=== PATIENT | male | born 1965 | race Caucasian/White ===

== ENCOUNTER → 2020-09-04 | Outpatient (CLI) | payer OTHER ==
--- NOTE | 2020-09-05 09:07 | CT ---
EXAMINATION TYPE: CT iac wo con DATE OF EXAM: 09/04/2020 COMPARISON: None HISTORY: Conductive hearing loss. Patient had a [place] hearing implement that fell out. CT DLP: 142.7 mGycm Automated exposure control for dose reduction was used. Contrast: None Technique: Axial images 1 mm thick sections through the petrous ridges. Reconstructed images in the c oronal and sagittal plane were reviewed. FINDINGS: Retention cyst is within the left maxillary sinus. Mucosal thickening is within the left maxillary si nus. Some mild mucosal thickening is within the anterior ethmoid air cells and within the frontal sin uses. Remaining paranasal sinuses and mastoid air cells are clear. Cerebellopontine angles are clear. No expansion or erosion of the internal auditory canals is evident . There is left septal deviation. Ostiomeatal units are patent. Orbits appear symmetrical and unremar kable. Metallic foreign body is not identified on the indirect plane imaging. However, this may be present o n the insurance agency manager views posteriorly on the left. Standard CT brain may be able to better locate this object . IMPRESSION: 1. RADIOPAQUE FOREIGN BODY IS NOT IDENTIFIED. CONSIDER CT HEAD. 2. MUCOSAL THICKENING WITHIN PARANASAL SINUSES DISCUSSED ABOVE. 3. NO SUSPICIOUS ACUTE ABNORMALITY.
== END | disposition home or self-care (01) ==
LOC: RADCTMAIN 16:48
PROVIDERS: ATTEND Otolaryngology
DX: H90.2 Conductive hearing loss, unspecified (principal)
CPT/HCPCS: 70480

== ENCOUNTER → 2020-10-13 | Outpatient (CLI) | payer OTHER ==
--- NOTE | 2020-10-14 06:13 | CT ---
EXAMINATION TYPE: CT brain wo con DATE OF EXAM: 10/13/2020 HISTORY: Bilateral sensorineural hearing loss, history of implant. Looking for left over foreign body . Patient poor historian. CT DLP: 1064.3 mGycm. Automated Exposure Control for Dose Reduction was Utilized. TECHNIQUE: CT scan of the head is performed without contrast. COMPARISON: CT IAC September 04, 2020. FINDINGS: There is no acute intracranial hemorrhage or midline shift identified. There is mild diff use ventricular and sulcal prominence consistent with diffuse age-related cerebral atrophy. There is mild low-attenuation in the periventricular white matter consistent with chronic small vessel ischem ic change. Small mucous retention cyst and/or polyp in the inferior left maxillary sinus with minima l mucosal thickening is redemonstrated. Mild mucosal thickening involving the inferior bilateral fron isabela and anterior ethmoid sinuses redemonstrated. Globes are intact.. No suspicious opacification of mastoid air cells bilaterally. No suspicious CT dense foreign body at this level. No significant lew nge from prior. IMPRESSION: As above.
== END ==
LOC: RADCTMAIN 16:32
PROVIDERS: ATTEND Otolaryngology
DX: H90.3 Sensorineural hearing loss, bilateral (principal)
CPT/HCPCS: 70450

== ENCOUNTER → 2020-11-26 | Outpatient (CLI) | payer OTHER | END | disposition home or self-care (01) | CPT/HCPCS: 70553 ==

== ENCOUNTER → 2021-05-05 | Outpatient (CLI) | payer OTHER ==
[~2021-05-05] MED LIST: BAMLANIVIMAB (EUA) 700 MG, ETESEVIMAB (EUA) 1,400 MG in SODIUM CHLORIDE 0.9% 50 ML IVPB ONE; SODIUM CHLORIDE 0.9% 50 ML IVPB ONE; SODIUM CHLORIDE 0.9% 500 ML 500 ML in EMPTY BAG 1 BAG IV PRN
[2021-05-05 10:49] VITALS: PULSE 70; RESP 16
[2021-05-05 11:20] VITALS: BP 144/93
== END | disposition home or self-care (01) ==
LOC: PROCWHC3 09:59
PROVIDERS: ATTEND Physician Assistant
DX: U07.1 COVID-19 (principal)
CPT/HCPCS: 96360; J3490; M0245

== ENCOUNTER 2021-05-25 15:20 | Emergency (ER) | payer OTHER ==
--- NOTE | 2021-05-25 13:53 | CT ---
EXAMINATION TYPE: CT brain wo con DATE OF EXAM: 05/25/2021 COMPARISON: 10/13/2020 HISTORY: 56-year-old male head injury with LOC, pain. S06.0X9A concussion with LOC TECHNIQUE: Examination was done in axial plane without intravenous contrast. Coronal and sagittal r econstructions performed. CT DLP: 1162.8 mGycm Automated exposure control for dose reduction was used. FINDINGS: Extensive streak and beam hardening artifact along the left parietal convexity secondary to the patie nt's scalp implant. Allowing for the extensive artifacts and along the visualized portions, there is no evidence of acut e intracranial hemorrhage, acute ischemic changes, mass, mass-effect, or extra-axial fluid collection . There is no effacement of cerebral sulci or basal subarachnoid cisterns. There is no hydrocephalu s. There is no midline shift. Cat-white matter distinction is preserved. Paranasal sinuses show mild mucosal thickening floor of the left maxillary sinus along with a 1.4 cm polyp or mucous retention cyst. There is partial resection changes extending left mastoid process. Th ere is partial opacification here and leads extending into the cochlea. IMPRESSION: 1. Interval placement of left-sided cochlear implant with partial resection into the left mastoid pro cess and stimulator lead extending to the left cochlea. 2. There is some partial opacification of the left-sided mastoid air cells now. Correlate for any shane n to exclude mastoiditis. 3. Allowing for extensive artifacts secondary to the generator device along the left parietal region , no definite acute intracranial abnormality is seen.
[2021-05-25 14:17] LABS: Basophils # (A) 0.1 k/uL (0-0.2); Basophils % (A) 1 %; Eosinophils # (A) 0.1 k/uL (0-0.7); Eosinophils % (A) 2 %; HCT 47.8 % (39.0-53.0); HGB 16.2 gm/dL (13.0-17.5); Lymphocytes # (A) 1.3 k/uL (1.0-4.8); Lymphocytes % (A) 16 %; MCH 32.2 pg (25.0-35.0); MCHC 33.9 g/dL (31.0-37.0); MCV 94.8 fL (80.0-100.0); Monocytes # (A) 0.8 k/uL (0-1.0); Monocytes % (A) 10 %; Neutrophils # (A) 5.7 k/uL (1.3-7.7); Neutrophils % (A) 70 %; Platelet Count 264 k/uL (150-450); RBC 5.05 m/uL (4.30-5.90); RDW 13.1 % (11.5-15.5); WBC 8.2 k/uL (3.8-10.6)
[2021-05-25 14:28] LABS: ALT 147 U/L (4-49); AST 58 U/L (17-59); African American GFR (CKD) >90 (>60 ml/min/1.73 sqM); Albumin 4.2 g/dL (3.5-5.0); Alkaline Phosphatase 86 U/L (38-126); Anion Gap 9 mmol/L; Blood Urea Nitrogen 26 mg/dL (9-20); Calcium 9.3 mg/dL (8.4-10.2); Carbon Dioxide 23 mmol/L (22-30); Chloride 107 mmol/L (98-107); Glucose 112 mg/dL (74-99); Non-African American GFR(CKD) >90 (>60 ml/min/1.73 sqM); Potassium 4.3 mmol/L (3.5-5.1); Sodium 139 mmol/L (137-145); Total Bilirubin 1.1 mg/dL (0.2-1.3); Total Protein 7.4 g/dL (6.3-8.2)
[2021-05-25 14:47] LABS: Troponin I <0.012 ng/mL (0.000-0.034)
--- NOTE | 2021-05-25 15:57 | CT ---
EXAMINATION TYPE: CT angio chest DATE OF EXAM: 05/25/2021 COMPARISON: None HISTORY: 56-year-old male shortness of breath, R06.00 dyspnea history of colon. Patient with difficul ty breathing instructions/poor hearing. TECHNIQUE: Contiguous axial scanning of the chest performed with IV Contrast, patient injected with 1 00 mL of Isovue 370. Coronal/sagittal MIP reconstructions performed. CT DLP: 624 mGycm Automated exposure control for dose reduction was used. FINDINGS: Heart normal size without pericardial effusion. There is mild hypertrophy of the left ventricular wal l. No flattening of the interventricular septum or reflux of contrast into the hepatic veins. Borderline ectasia aortic root at 3.5 cm. Conventional orifice of branching anatomy. Borderline ectas ia upper descending thoracic aorta 3.0 cm. Scattered nonenlarged and borderline to mildly enlarged mediastinal lymph nodes measuring up to 1.4 c m AP window and 1.1 cm precarinal region. Lymph nodes measure up to 2.0 cm right hilum and 1.1 cm rig ht infrahilar. They measure up to 1.5 cm left hilum and 1.5 cm left infrahilar. While there is satisfactory opacification of the pulmonary tail system, there is prominent streak and beam hardening artifact from dense contrast column within the SVC. This limits assessment. Unable to exclude segmental right upper lobe branch pulmonary emboli, reference axial image 58 and 66. No larg e central pulmonary embolus is seen. Old healed right-sided rib fracture deformities. Mild biapical pleural-parenchymal scarring. No conso lidation or pleural effusion. Elongated pulmonary nodule measuring up to 1 cm right middle lobe, axia l image 106. Peripheral left basilar pulmonary nodule measuring 7 mm, axial image 131. No consolidation or pleural effusion. Small hiatal hernia. Visualized upper abdomen shows no gross abnormality. Bones: Chronic right lateral rib fracture deformities. Mild degenerative disc disease mid to lower th oracic spine. IMPRESSION: 1. LIMITATIONS DUE TO DENSE CONTRAST COLUMN IN THE SVC. UNABLE TO EXCLUDE A FEW SEGMENTAL BRANCH FILL ING DEFECTS/PULMONARY EMBOLI, WITH MILD OVERALL BURDEN IN THE RIGHT UPPER LOBE. 2. MILD LEFT VENTRICULAR WALL HYPERTROPHY. NO EVIDENCE FOR RIGHT HEART STRAIN. 3. PULMONARY NODULE RIGHT MIDDLE LOBE MEASURING 1 CM AND ALSO IN THE PERIPHERAL LEFT LOWER LOBE MEASU RING 7 MM. THERE IS ALSO MEDIASTINAL AND HILAR LYMPHADENOPATHY MEASURING UP TO 2.0 CM. UNABLE TO EXCL UDE METASTATIC DISEASE AT THIS TIME. CONSIDER EITHER PET/CT VERSUS THREE-MONTH FOLLOW-UP CT CHEST TO REASSESS. 4. SMALL HIATAL HERNIA.
[2021-05-25] MEDS ORDERED: SODIUM CHLORIDE 0.9% 1,000 ML IV STA (18:18)
--- NOTE | 2021-05-25 18:53 | ED ---
General Adult HPI - General Chief complaint: Shortness of Breath Stated complaint: Recheck, sent from CT Time Seen by Provider: 05/25/21 17:02 Source: patient, family, RN notes reviewed Mode of arrival: wheelchair Limitations: language barrier - History of Present Illness Initial comments: 56-year-old male presents to the emergency department for evaluation of multiple complaints. Patient states he was getting an outpatient CT scan of his head and his chest when he experienced dizziness upon rising from the table. Patient states that he had an episode in which he fell and hit his head on concrete. Patient states he is uncertain of how long he was unconscious but his spouse estimates approximately 30 minutes, though did not witness this event. Patient does have a laceration on his scalp with an area of tenderness around the left ear. Patient has a history of cochlear implant. Complains of left anterior chest pain and shortness of breath as well. Denies fever, chills, vision changes, abdominal pain, nausea, vomiting, diarrhea, or dysuria. - Related Data Previous Rx's Medication Instructions Recorded Amoxicillin/Potassium Clav 1 tab PO Q12HR #20 tab 05/25/21 [Augmentin 875-125 Tablet] Allergies Allergy/AdvReac Type Severity Reaction Status Date / Time No Known Allergies Allergy Verified 05/25/21 18:40 Review of Systems ROS Statement: Those systems with pertinent positive or pertinent negative responses have been documented in the HPI. ROS Other: All systems not noted in ROS Statement are negative. Past Medical History History of Any Multi-Drug Resistant Organisms: None Reported Additional Past Surgical History / Comment(s): cochlea transplant Past Psychological History: No Psychological Hx Reported Smoking Status: Current every day smoker Past Alcohol Use History: Daily Past Drug Use History: None Reported General Exam Limitations: language barrier (Heart of hearing with cochlear implants) General appearance: alert, in no apparent distress, other (This is a well- developed, well-nourished male in no acute distress. Initial temperature 98.1, pulse 80, respirations 22, blood pressure 132/90, pulse ox 98% on room air) Expanded Head exam: Present: laceration (1 cm laceration left parietal region; no active bleeding), other (Tenderness upon palpation of the left parietal and mastoid regions) Eye exam: Present: normal appearance, PERRL, EOMI. Absent: scleral icterus, conjunctival injection, periorbital swelling ENT exam: Present: normal exam, normal oropharynx, mucous membranes moist, TM's normal bilaterally, other (No evidence of otitis media as tympanic membranes are not erythematous, nor bulging) Expanded TM/Canal exam: Mastoid Tenderness: Left TM (left parietal tenderness upon palpation extends to the mastoid region; no erythema or edema; does have implanted device in that area as well.) Neck exam: Present: normal inspection, tenderness (Tenderness upon palpation bilateral cervical lymph node chains), full ROM. Absent: meningismus, lymphadenopathy Respiratory exam: Present: normal lung sounds bilaterally, chest wall tenderness (Scattered areas of anterior chest wall tenderness upon palpation). Absent: respiratory distress, wheezes, rales, rhonchi, stridor Cardiovascular Exam: Present: regular rate, normal rhythm, normal heart sounds. Absent: systolic murmur, diastolic murmur, rubs, gallop, clicks GI/Abdominal exam: Present: soft, normal bowel sounds. Absent: distended, tenderness, guarding, rebound, rigid Extremities exam: Present: other (Scattered contusions on bilateral lower extremities; +2 pedal pulses) Back exam: Present: normal inspection Neurological exam: Present: alert, oriented X3, CN II-XII intact Psychiatric exam: Present: anxious Skin exam: Present: warm, dry, intact, normal color. Absent: rash Course Vital Signs 05/25/21 05/25/21 05/25/21 15:56 16:59 18:41 Temperature 98.1 F Pulse Rate 80 64 Respiratory 22 20 18 Rate Blood Pressure 132/90 123/79 O2 Sat by Pulse 98 100 Oximetry 05/25/21 05/25/21 05/25/21 19:15 20:50 20:54 Temperature Pulse Rate 66 62 Respiratory 20 20 Rate Blood Pressure 143/95 114/90 O2 Sat by Pulse 100 98 100 Oximetry 05/25/21 21:25 Temperature 98.2 F Pulse Rate Respiratory Rate Blood Pressure O2 Sat by Pulse Oximetry - Reevaluation(s) Reevaluation #1: 05/25/21 19:16 Upon reevaluation, patient is concerned about his shortness of breath and is having twinges of burning pain scattered throughout the anterior chest wall. Medical Decision Making - Medical Decision Making 56-year-old male with a history of a cochlear implant and a recent Covid infection presents to the emergency department for evaluation of multiple complaints. Upon exam, patient is well-appearing and in no acute distress. He is able to speak in full sentences without difficulty, though does insist he feels short of breath. He is afebrile with room air saturation of 95% or greater. Patient has a 1 cm laceration on the left parietal area of the scalp from a fall yesterday. Does have left parietal mastoid tenderness upon palpation. Also has anterior wall chest pain that worsens with palpation and is intermittent in nature. States he contacted his PCP who ordered labs and outpatient CAT scans. Laboratory studies were reviewed and show a mildly elevated d-dimer at 0.66. CTA produced suboptimal images, and though PE cannot be entirely excluded, it is felt to be unlikely. CT of the brain also produced poor imaging results due to extensive artifact. There is concern for mastoiditis and patient does have tenderness upon palpation of the left parietal and mastoid region, however, this does appear to be the area injured in patient's fall yesterday as evidenced by small laceration. There is no indicator of infectious process as the entire left ear and scalp are nonerythematous and not edematous. Due to the patient's history, he will be treated with oral antibiotic in the event that this is early mastoiditis. In discussing these findings with the patient, he is more concerned about his shortness of breath and chest discomfort. Chest x-ray was obtained and is unremarkable. Initial troponin was negative, as was the repeat. Explained that it is not uncommon for patients who are recovering from COVID-19 or who have had a recent infection to experience residual shortness of breath. Chest discomfort is reproducible with palpation and movement. Discussed post acute Covid syndr ome for potential consideration. This patient's care was discussed with my attending . Patient will be discharged home to follow up with his PCP tomorrow. Return parameters were discussed in detail. Patient's spouse at bedside feels this is a reasonable plan. - Lab Data Result diagrams: 05/25/21 13:45 05/25/21 13:45 Lab Results 05/25/21 05/25/21 05/25/21 Range/Units 13:45 13:45 13:45 WBC 8.2 (3.8-10.6) k/uL RBC 5.05 (4.30-5.90) m/uL Hgb 16.2 (13.0-17.5) gm/dL Hct 47.8 (39.0-53.0) % MCV 94.8 (80.0-100.0) fL MCH 32.2 (25.0-35.0) pg MCHC 33.9 (31.0-37.0) g/dL RDW 13.1 (11.5-15.5) % Plt Count 264 (150-450) k/uL MPV 7.0 Neutrophils % 70 % Lymphocytes % 16 % Monocytes % 10 % Eosinophils % 2 % Basophils % 1 % Neutrophils # 5.7 (1.3-7.7) k/uL Lymphocytes # 1.3 (1.0-4.8) k/uL Monocytes # 0.8 (0-1.0) k/uL Eosinophils # 0.1 (0-0.7) k/uL Basophils # 0.1 (0-0.2) k/uL D-Dimer (<0.60) mg/L FEU Sodium 139 (137-145) mmol/L Potassium 4.3 (3.5-5.1) mmol/L Chloride 107 (98-107) mmol/L Carbon Dioxide 23 (22-30) mmol/L Anion Gap 9 mmol/L BUN 26 H (9-20) mg/dL Creatinine 0.79 (0.66-1.25) mg/dL Est GFR (CKD-EPI)AfAm >90 (>60 ml/min/1.73 sqM) Est GFR (CKD-EPI)NonAf >90 (>60 ml/min/1.73 sqM) Glucose 112 H (74-99) mg/dL Calcium 9.3 (8.4-10.2) mg/dL Total Bilirubin 1.1 (0.2-1.3) mg/dL AST 58 (17-59) U/L ALT 147 H (4-49) U/L Alkaline Phosphatase 86 (38-126) U/L CK-MB (CK-2) (0.0-2.4) ng/mL Troponin I (0.000-0.034) ng/mL NT-Pro-B Natriuret Pep 51 pg/mL Total Protein 7.4 (6.3-8.2) g/dL Albumin 4.2 (3.5-5.0) g/dL 05/25/21 05/25/21 05/25/21 Range/Units 13:45 13:45 21:05 WBC (3.8-10.6) k/uL RBC (4.30-5.90) m/uL Hgb (13.0-17.5) gm/dL Hct (39.0-53.0) % MCV (80.0-100.0) fL MCH (25.0-35.0) pg MCHC (31.0-37.0) g/dL RDW (11.5-15.5) % Plt Count (150-450) k/uL MPV Neutrophils % % Lymphocytes % % Monocytes % % Eosinophils % % Basophils % % Neutrophils # (1.3-7.7) k/uL Lymphocytes # (1.0-4.8) k/uL Monocytes # (0-1.0) k/uL Eosinophils # (0-0.7) k/uL Basophils # (0-0.2) k/uL D-Dimer 0.66 H (<0.60) mg/L FEU Sodium (137-145) mmol/L Potassium (3.5-5.1) mmol/L Chloride (98-107) mmol/L Carbon Dioxide (22-30) mmol/L Anion Gap mmol/L BUN (9-20) mg/dL Creatinine (0.66-1.25) mg/dL Est GFR (CKD-EPI)AfAm (>60 ml/min/1.73 sqM) Est GFR (CKD-EPI)NonAf (>60 ml/min/1.73 sqM) Glucose (74-99) mg/dL Calcium (8.4-10.2) mg/dL Total Bilirubin (0.2-1.3) mg/dL AST (17-59) U/L ALT (4-49) U/L Alkaline Phosphatase (38-126) U/L CK-MB (CK-2) 1.0 (0.0-2.4) ng/mL Troponin I <0.012 <0.012 (0.000-0.034) ng/mL NT-Pro-B Natriuret Pep pg/mL Total Protein (6.3-8.2) g/dL Albumin (3.5-5.0) g/dL - EKG Data EKG shows normal: sinus rhythm Rate: normal EKG Comments: EKG was obtained at 1608 and shows normal sinus rhythm. Ventricular rate 75 RI interval 144 QRS duration 88 QT/QTC 382/426. Interpretation: Normal ECG. - Radiology Data Radiology results: report reviewed, image reviewed Two-view chest x-ray was obtained. Report was reviewed in its entirety. Impression per Dr. Madrid is no active cardiopulmonary disease. Normal heart. Disposition Clinical Impression: Post-acute COVID-19 syndrome, Mastoiditis of left side, Laceration of head, Anterior chest wall pain Disposition: HOME SELF-CARE Condition: Stable Instructions (If sedation given, give patient instructions): Dyspnea (ED), Chest Wall Pain (ED), Mastoiditis (ED) Additional Instructions: You are being prescribed an antibiotic and diagnosed with mastoiditis because of the tenderness around the left ear. Though likely related to the trauma of the fall, this antibiotic is being prescribed this pain is related to infection and not trauma. Please follow up with your PCP for a recheck tomorrow. I do believe that your shortness of breath can be attributed to your recent COVID infection. Post-Acute COVID Syndrome is the name for the condition in which COVID symptoms persist after the infectious period. If you feel like you cannot breather or are having any distress, please do not hesitate to return to the emergency department. Prescriptions: Amoxicillin/Potassium Clav [Augmentin 875-125 Tablet] 1 tab PO Q12HR #20 tab Is patient prescribed a controlled substance at d/c from ED?: No Referrals: Luis Carlos Jose MD [Primary Care Provider] - 1-2 days Time of Disposition: 21:10
--- NOTE | 2021-05-25 19:48 | XR ---
EXAMINATION TYPE: XR chest 2V DATE OF EXAM: 05/25/2021 COMPARISON: NONE HISTORY: Short of breath TECHNIQUE: 2 views FINDINGS: There is no heart failure nor confluent pneumonic infiltrate. Costophrenic angles are clear . There are multiple old right-sided healed rib fractures. There is no pleural effusion. IMPRESSION: No active cardiopulmonary disease. Normal heart.
[2021-05-25 20:54] VITALS: RESP 20
[2021-05-25 20:55] VITALS: BP 114/90; PULSE 62
[2021-05-25] MEDS ORDERED: AMOXIC-POT CLAV 875-125MG 1 EACH TAB PO STA (20:59)
[2021-05-25 21:26] VITALS: TEMP 98.2
== END 2021-05-25 21:25 | disposition home or self-care (01) ==
LOC: EC 15:20
DX: S01.91XA Laceration without foreign body of unspecified part of head, initial encounter (principal); F17.200 Nicotine dependence, unspecified, uncomplicated; U07.1 COVID-19; H70.92 Unspecified mastoiditis, left ear; X58.XXXA Exposure to other specified factors, initial encounter
CPT/HCPCS: 99285; 96360; 36415 ×2; 93005; 85379; 83880; 80053; 82553; 84484; 85025; 71046; 70450; 71275; Q9967

== ENCOUNTER → 2021-07-31 | Outpatient (CLI) | payer BC ==
--- NOTE | 2021-07-31 21:29 | PE ---
EXAMINATION TYPE: PET CT fusion skull to thigh DATE OF EXAM: 07/31/2021 COMPARISON: CT chest May 25, 2021 HISTORY: Solitary pulmonary nodule, abnormal CT TECHNIQUE: Following the intravenous administration of 9.34 mCi of F-18 FDG, whole body images are p erformed from the skull base to the midthigh. Images are reviewed on the computer in the coronal, ax ial, and sagittal planes. Reconstructed rotating images are created on independent workstation and r eviewed on the computer. A localization and attenuation correction CT is performed in conjunction w ith the PET scan. Blood glucose level equals 103. SCAN: Initial Scan FINDINGS: SKULL BASE AND NECK: No areas of abnormal hypermetabolic uptake. CHEST, MEDIASTINUM, AND HILAR REGION: Persistent 7 x 5 mm peripheral left lower lobe nodule axial jake ge 122 is ametabolic. Slightly prominent but subcentimeter scattered bilateral hilar and mediastinal lymph nodes. No abnormal enlarged hypermetabolic lymph nodes. ABDOMEN AND PELVIS: No adrenal masses. Normal excretion. No areas of abnormal hypermetabolic uptake. OSSEOUS STRUCTURES: No areas of abnormal hypermetabolic uptake. OTHER CT: Posterior left occipital scalp stimulator or hearing device partially imaged. Mild to moder ate calcified plaque left carotid bulb. Redundant sigmoid colon. IMPRESSION: No abnormal hypermetabolic uptake in the 7 x 5 mm left lower lobe nodule. No abnormal hyp ermetabolic uptake in whole body. Consider follow-up CT and/or PET CT in 6-12 months time to reassess .
== END | disposition home or self-care (01) ==
LOC: RADPETMAIN 12:07
PROVIDERS: ATTEND Internal Medicine Critical Care Medicine
DX: R91.8 Other nonspecific abnormal finding of lung field (principal)
CPT/HCPCS: 78815; A9552

== ENCOUNTER → 2022-10-25 | Outpatient (CLI) | payer BC ==
--- NOTE | 2022-10-25 08:54 | CT ---
EXAMINATION TYPE: CT chest wo con DATE OF EXAM: 10/25/2022 COMPARISON: Prior CTA chest May 25, 2021 and PET/CT July 31, 2021 HISTORY: Lung nodule. CT DLP: 394.1 mGycm. Automated Exposure Control for Dose Reduction was Utilized. TECHNIQUE: CT scan of the thorax is performed without IV contrast. FINDINGS: LUNGS: Persistent 6 x 5 mm peripheral left lower lobe nodule axial image 46 is stable. No new great er than 5 mm pulmonary nodules. Dependent atelectasis bilaterally. There is no pleural effusion or pn eumothorax seen. The tracheobronchial tree is patent. MEDIASTINUM: Lack of IV contrast is noted to limit evaluation for mediastinal and especially hilar ad enopathy. There are no definitive new greater than 1 cm mediastinal lymph nodes. No cardiomegaly or pericardial effusion is seen. OTHER: Old right lateral rib fractures are redemonstrated. IMPRESSION: Stable 6 x 5 mm peripheral left lower lobe nodule. No new or enlarging nodules present.
== END | disposition home or self-care (01) ==
LOC: RADCTMAIN 07:50
PROVIDERS: ATTEND Family Medicine
DX: R91.1 Solitary pulmonary nodule (principal)
CPT/HCPCS: 71250

== ENCOUNTER 2023-11-18 10:41 | Day surgery (SDC) | payer BC ==
[2023-11-16 14:16] VITALS: BMI 28.1
[2023-11-18 11:11] VITALS: TEMP 97.5
[2023-11-18] MEDS: LACTATED RINGERS 1,000 ML IV SCH (11:12)
[2023-11-18] MEDS: IV FLUID CONTINUATION 1,000 ML IV ONE ×2 (11:14)
[2023-11-18] MEDS ORDERED: PROPOFOL 10 MG/ML 20 ML VIAL IV ONE (12:14)
--- NOTE | 2023-11-18 12:27 | P.PCN ---
Date of Procedure: 11/18/23 Procedure(s) Performed: BRIEF HISTORY: Patient is a 58-year-old pleasant white male scheduled for an elective colonoscopy as a part of screening for colon cancer. PROCEDURE PERFORMED: Colonoscopy with biopsy. PREOPERATIVE DIAGNOSIS: Screening for colon cancer. IV sedation per Anesthesia. PROCEDURE: After informed consent was obtained, the patient, was brought into the endoscopy unit. IV sedation was administered by Anesthesia under continuous monitoring. Digital rectal examination was normal. Initially the Olympus CF-160 flexible video colonoscope was then inserted in the rectum, gradually advanced into the cecum without any difficulty. Careful examination was performed as the scope was was gradually being withdrawn. Prep was poor in several layers of the colon. Ileocecal valve and appendiceal orifice fissure base appeared normal. In the cecum there was a 5 mm polyp that was removed by cold biopsy. Rest of the ascending colon, transverse colon, descending colon, sigmoid colon, and rectum appeared normal. Scattered sigmoid diverticulosis. Retroflexion was performed in the rectum and no lesions were seen. The patient tolerated the procedure well. IMPRESSION: 5 mm cecal polyp status post cold biopsy Poor prep Sigmoid diverticulosis. RECOMMENDATIONS: Findings of this examination were discussed with the patient as well as his family. He was advised to follow-up with the biopsy results and if the biopsy was adenoma recommended repeat colonoscopy in 5 years
[2023-11-18 12:55] VITALS: BP 122/73; PULSE 64; RESP 18
== END 2023-11-18 13:28 ==
LOC: ORWHC2ENDO 10:41
PROVIDERS: ATTEND Internal Medicine Gastroenterology
DX: Z12.11 Encounter for screening for malignant neoplasm of colon (principal); K57.30 Diverticulosis of large intestine without perforation or abscess without bleeding; E78.5 Hyperlipidemia, unspecified; Z79.899 Other long term (current) drug therapy; Z98.890 Other specified postprocedural states
CPT/HCPCS: 88305; 45380; J2704

== ENCOUNTER → 2024-07-20 | Outpatient (CLI) | payer MEDICARE ==
--- NOTE | 2024-07-20 10:31 | US ---
EXAMINATION TYPE: US abdomen limited DATE OF EXAM: 07/20/2024 COMPARISON: NONE CLINICAL INDICATION: Male, 59 years old with history of K42.9 UMBILICAL HEHERNIA; known umbilical her ro for a year and patient states it is growing TECHNIQUE: Grayscale with or without color Doppler imaging of the area of hernia concern. Real-time scanning was performed by the thermal engineer utilizing Valsalva and additional dynamic maneuve rs to assess for hernia. Images of the contralateral side were also acquired for direct comparison. FINDINGS: Assess for hernia at location of: Umbilicus Obvious peristalsing hernia seen, no real change with valsalva. Approximately 3.1cm IMPRESSION: 1. Periumbilical hernia with bowel peristalsis evident within. Opening is estimated at 1.6 cm. [facility], , 07/20/2024 10:28 AM
--- NOTE | 2024-07-20 10:31 | CT ---
EXAMINATION TYPE: CT chest wo con DATE OF EXAM: 07/20/2024 COMPARISON: Chest CT October 25, 2022 and older study May 25, 2021 HISTORY: lung nodule CT DLP: 540 mGycm. Automated Exposure Control for Dose Reduction was Utilized. TECHNIQUE: CT scan of the thorax is performed without IV contrast. FINDINGS: LUNGS: Stable 5 x 5 mm peripheral left lower lobe nodule axial image 50. Stable hyperdense 7 x 5 mm r ight middle lobe nodule axial image 39. No new greater than 6 mm pulmonary nodules. Mild biapical p leural/parenchymal scarring redemonstrated. There is no pleural effusion or pneumothorax seen. The t racheobronchial tree is patent. MEDIASTINUM: Lack of IV contrast is noted to limit evaluation for mediastinal and especially hilar ad enopathy. There are no definitive new greater than 1 cm mediastinal lymph nodes. No cardiomegaly or pericardial effusion is seen. OTHER: Old right lateral and posterior rib fractures are redemonstrated. IMPRESSION: Stable small bilateral nodules. No new or enlarging greater than 6 mm pulmonary nodules. [facility], , 07/20/2024 10:28 AM
== END | disposition home or self-care (01) ==
LOC: RADUSWWP 08:51
PROVIDERS: ATTEND Family Medicine
DX: R91.1 Solitary pulmonary nodule (principal); K42.9 Umbilical hernia without obstruction or gangrene
CPT/HCPCS: 71250; 76705

== ENCOUNTER 2024-11-30 05:32 | Day surgery (SDC) | payer MEDICARE ==
--- NOTE | 2024-11-29 17:09 | P.GSHP ---
History of Present Illness H&P Date: 11/29/24 Chief Complaint: Incarcerated umbilical hernia 59-year-old male seen in the office in September. Patient with complaints of pain at the umbilicus. Patient has a incarcerated umbilical hernia there. Present for the last 1.5 years. Patient was planning to stop smoking for this surgery and also his ankle surgery. Past Medical History Past Medical History: CVA/TIA Additional Past Medical History / Comment(s): "they say I had mini stroke" History of Any Multi-Drug Resistant Organisms: None Reported Past Surgical History: Orthopedic Surgery Additional Past Surgical History / Comment(s): cochlear implant, dayton knee scopes ,dayton hand and foot surgery, Past Anesthesia/Blood Transfusion Reactions: No Reported Reaction Smoking Status: Former smoker - Past Family History Father Family Medical History: No Reported History Medications and Allergies Home Medications Medication Instructions Recorded Confirmed Type No Known Home Medications 11/29/24 11/29/24 History Allergies Allergy/AdvReac Type Severity Reaction Status Date / Time No Known Allergies Allergy Verified 11/29/24 08:30 Surgical - Exam Physical exam: General: Well-developed, well-nourished HEENT: Normocephalic, sclerae nonicteric Abdomen: Nontender, nondistended, incarcerated small to moderate-sized umbilical hernia Extremities: No edema Neuro: Alert and oriented Assessment and Plan (1) Incarcerated umbilical hernia Narrative/Plan: 59-year-old male with incarcerated umbilical hernia. Will proceed with open repair encouraged umbilical hernia with possible mesh. Risks of bleeding, infection, recurrence, chronic pain, bladder and bowel injury, numbness, scarring, and anesthesia related complications were discussed. The correlation between hernia recurrence, obesity and smoking were reviewed in detail. The patient understands and wishes to proceed. Status: Acute Code(s): K42.0 - UMBILICAL HERNIA WITH OBSTRUCTION, WITHOUT GANGRENE SNOMED Code(s): 729692471
[2024-11-30] MEDS ORDERED: SCOPOLAMINE 1 MG/72 HR PATCH TRANSDERM ONE (05:47)
[2024-11-30] MEDS: IV FLUID CONTINUATION 1,000 ML IV ONE (06:07)
[2024-11-30] MEDS: LACTATED RINGERS 1,000 ML IV SCH (06:28)
[2024-11-30] MEDS: ACETAMINOPHEN TAB 500 MG TAB PO PRN (06:28)
[2024-11-30] MEDS: ONDANSETRON 4 MG/2 ML VIAL IVP ONE (06:28)
[2024-11-30] MEDS: DEXAMETHASONE SOD PHOSPHATE 4 MG/ML 1 ML VIAL IV ONE (06:28)
[2024-11-30] MEDS: MIDAZOLAM 2 MG/2 ML VIAL IV PRN (06:55)
[2024-11-30] MEDS: fentaNYL (PF) 50 MCG/ML 2 ML AMP IVP PRN (06:55)
[2024-11-30] MEDS ORDERED: HYDROmorphone 0.5 MG/0.5 ML SYRINGE IVP PRN (07:00)
[2024-11-30] MEDS: HEPARIN SODIUM,PORCINE 5,000 UNIT/ML 1 ML VIAL SQ PRN (07:07)
[2024-11-30] MEDS ORDERED: ROCURONIUM 10 MG/ML (5 ML VIAL) IV ONE (07:19)
[2024-11-30] MEDS ORDERED: ROPIVACAINE 5 MG/ML 30 ML VIAL ONE (07:19)
[2024-11-30] MEDS ORDERED: SUCCINYLCHOLINE CHLORIDE 200 MG/10 ML VIAL IV ONE (07:19)
[2024-11-30] MEDS ORDERED: SODIUM CHLORIDE 0.9% (PF) 10 ML VIAL ONE (07:19)
[2024-11-30] MEDS ORDERED: GLYCOPYRROLATE 0.2 MG/ML 2 ML VIAL ONE (07:19)
[2024-11-30] MEDS ORDERED: KETOROLAC 15 MG/ML 1 ML VIAL ONE (07:19)
[2024-11-30] MEDS ORDERED: DEXAMETHASONE SOD PHOSPHATE 4 MG/ML 1 ML VIAL ONE (07:19)
[2024-11-30] MEDS ORDERED: NEOSTIGMINE 1 MG/ML 10 ML VIAL ONE (07:19)
[2024-11-30] MEDS ORDERED: fentaNYL (PF) 50 MCG/ML 2 ML AMP ONE (07:19)
[2024-11-30] MEDS ORDERED: LIDOCAINE 1% INJ 10MG/ML (20 ML MDV) ONE (07:19)
[2024-11-30] MEDS ORDERED: PROPOFOL 10 MG/ML 20 ML VIAL IV ONE (07:19)
[2024-11-30] MEDS ORDERED: PHENYLEPHRINE 10 MG/ML VIAL ONE (07:19)
[2024-11-30] MEDS: BUPIVACAINE (PF) 0.25% 30 ML VIAL SQ ONE (07:50)
[2024-11-30] MEDS: LACTATED RINGERS 1,000 ML IV ONE (08:18)
--- NOTE | 2024-11-30 08:37 | P.OP ---
Date of Procedure: 11/30/24 Procedure(s) Performed: PREOPERATIVE DIAGNOSIS: Incarcerated umbilical hernia POSTOPERATIVE DIAGNOSIS: Same PROCEDURE: Open repair incarcerated umbilical hernia with mesh SURGEON: Dr. Chappell ANESTHESIA: General EBL: 5 cc OPERATIVE PROCEDURE DETAILS: The patient was placed in the operating table in the supine position. A curvilinear supraumbilical incision was made using the scalpel. The subcutaneous tissues were dissected bluntly and with cautery. The hernia sac was identified. The umbilical attachments to the fascia were divided using electrocautery. The hernia sac was excised. The defect in the fascia measured 2.1 x 1.2 cm. The fat overlying the fascia was dissected. No additional defects were seen. The preperitoneal space was then dissected using blunt dissection and electrocautery. The 4.3 cm ventral ex mesh was placed beneath the fascia and sutured in place using trans-fascial 0 Ethibond sutures. The defect was closed using interrupted vest over pants 0 Ethibond mattress sutures. The subcutaneous tissues were reapproximated using inverted 2-0 & 3-0 Vicryl sutures. The umbilicus was tacked back down to the fascia using a 2-0 Vicryl suture. The skin was closed using 4-0 Monocryl sutures. Skin glue and sterile dressings were then applied. HERNIA CHARACTERISTICS: Length: 1.2 cm Width: 2.1 cm Type: Umbilical TYPE OF MESH USED: 4.3 cm Ventralex LOCATION OF MESH: [place], extraperitoneal FIXATION: 0 Ethibond PREOPERATIVE DISCUSSION ON SMOKING CESSASTION: Yes PREOPERATIVE DISCUSSION ON MORBID OBESITY: Yes PREOPERATIVE DISCUSSION ON APPROPRIATE USE OF NARCOTIC USE: Yes PREOPERATIVE EDUCATION: Multi Modal, Smoking Cessation and Weight Loss with BMI over 35. DISPOSITION: Stable to recovery room
[2024-11-30 08:39] VITALS: TEMP 97.3
[2024-11-30] MEDS ORDERED: IBUPROFEN 600 MG TAB PO SCH (09:00)
--- NOTE | 2024-11-30 09:48 | P.ANPRN ---
Procedure Note - Anesthesia - Nerve Block Performed Bilateral Rectus Abdominis Single Time Out Performed: Yes ([id number]) Date of Procedure: 11/30/24 Procedure Start Time: 06:55 Procedure Stop Time: 06:59 Location of Patient: PreOp Indication: Acute Post-Operative Pain, Requested by Surgeon Specifically requested for management of pain by DrCatherine: Rojelio Chappell Sedation Type: Sedate with meaningful contact maintained Preparation: Sterile Prep Position: Supine Catheter: None Needle Types: Pajunk Needle Gauge: 21 Ultrasound used to visualize needle placement: Yes Ultrasound used to observe medication spread: Yes Injectate: 0.5% Ropivacaine (see comment for volume) (15cc+10cc nacl pf+decadron 4mg each side) Blood Aspirated: No Pain Paresthesia on Injection Noted: No Resistance on Injection: Normal Image Stored and Saved: Yes Events: Uneventful and Well Tolerated
[2024-11-30 10:18] VITALS: PULSE 72
[2024-11-30 10:19] VITALS: BP 118/78; RESP 18
[2024-11-30] MEDS ORDERED: ACETAMINOPHEN TAB 325 MG TAB PO SCH (12:00)
== END 2024-11-30 10:42 | disposition home or self-care (01) ==
LOC: OR 05:32
PROVIDERS: ATTEND Surgery
DX: K42.0 Umbilical hernia with obstruction, without gangrene (principal); G89.18 Other acute postprocedural pain; E78.5 Hyperlipidemia, unspecified; Z87.891 Personal history of nicotine dependence; Z86.73 Personal history of transient ischemic attack (TIA), and cerebral infarction without residual deficits
CPT/HCPCS: 49592; 64488; C1781; J2250; J0330; J1644; J1100; J2710; J0690; J2405; J2003; J3010; J2795; J1885; J2704; J2371; J0665; J1596